=== PATIENT | female | born 1995 | race African-American/Black ===

== ENCOUNTER → 2024-02-10 10:25 | Outpatient (REF) | payer OTHER, SELFPAY ==
[2024-02-10 14:45] LABS: Mumps Virus IgG Positive; Rubeola (Measles) IgG Positive; Varicella Zoster IgG (VZV) Negative
[2024-02-11 19:48] LABS: Hepatitis B Surface Antibody Positive
[2024-02-11 20:15] LABS: Rubella Positive
== END ==
LOC: OHS 10:25
PROVIDERS: ATTENDING PHYSICIAN Nurse Practitioner Family
DX: Z23 Encounter for immunization (principal); Z13.9 Encounter for screening, unspecified
CPT/HCPCS: 36415; 71046; 86706; 86735; 86762; 86765; 86787